=== PATIENT | male | born 1985 | race Caucasian/White ===

== ENCOUNTER 2019-01-08 15:48 | Outpatient (CLI) | payer OTHER, SELFPAY ==
--- NOTE | 2019-01-08 15:45 | DI.RAD_ITS ---
SYMPTOM/DIAGNOSIS: HIP DISLOCATION, RT FOR COMPARISON RIGHT HIP: Two views were obtained. The SI joints appear intact as visualized. There is minimal narrowing of the cartilaginous joint spaces of both hips superiorly. Minimal acetabular spurring noted. The findings appear essentially unchanged in comparison with examination of 02/27/18. LEFT HIP AND PELVIS: Two views were obtained. Mild hypertrophic spurring of acetabulae noted bilaterally and mild narrowing of cartilaginous joint spaces of both hips noted. No gross interval change from 02/27/18.
== END 2019-01-08 16:08 ==
PROVIDERS: PCP Family Medicine; Visit Provider Student in an Organized Health Care Education/Training Program
DX: M25.552 Pain in left hip (principal); S73.005S Unspecified dislocation of left hip, sequela; M16.0 Bilateral primary osteoarthritis of hip
CPT/HCPCS: 73502

== ENCOUNTER → 2023-05-24 13:49 | Outpatient (CLI) | payer BC, SELFPAY ==
--- OUTSIDE RECORDS SUMMARY | 2023-05-24 13:51 | XMS_ITS | Continuity of Care Document ---
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 Name Role Phone Anthony Brown Md, V Primary Care Physician Encounter [id number] FIN NBR [id number] Date(s): 12/29/22 - 12/29/[address] [id number] [place] Discharge Disposition: Home or Self Care Attending Physician: Anthony Brown Md, V Admitting Physician: Anthony Brown Md, V Referring Physician: Anthony Brown Md, V Results Radiology Reports * Exam Date Time Procedure Performing Provider Status 12/29/22 10:31 AM XR Hips 2 Views w/AP Pelvis Bilat Nora Kinsey Auth (Verified) Notes: (XR Hips 2 Views w/AP Pelvis Bilat) Reason For Exam: bilateral hip pain XR Hips 2 Views w/AP Pelvis Bilat EXAM DESCRIPTION: XR Hips 2 Views w/AP Pelvis Bilat 12/29/2022 INDICATION: BILATERAL HIP PAIN TECHNIQUE: Pelvis and bilateral hips, five views COMPARISON: 04/23/2020 IMPRESSION: No acute fracture or dislocation. SI joints appear symmetric and pubic symphysis appears intact. No significant hip arthritic changes. Hip joint spaces are well maintained No focal lytic or sclerotic lesion. JOB #: [id number] Final Signed by: Luis Miguel Betts MD Signed (Electronic Signature): 12/29/2022 10:40 am * Exam Date Time Procedure Performing Provider Status 12/29/22 10:17 AM XR Foot Complete 3+ Views Left Nora Kinsey Auth (Verified) Notes: (XR Foot Complete 3+ Views Left) Reason For Exam: PAIN IN LEFT FOOT XR Foot Complete 3+ Views Left EXAM DESCRIPTION: XR Foot Complete 3+ Views Left 12/29/2022 INDICATION: PAIN IN LEFT FOOT COMPARISON: None IMPRESSION: No acute fracture or dislocation No significant regional arthritic changes. Joint spaces are well maintained Small smoothly marginated lytic lesion involving the 5th metatarsal head which appears nonaggressive. No regional radiopaque soft tissue foreign body. JOB #: [id number] Final Signed by: Luis Miguel Betts MD Signed (Electronic Signature): 12/29/2022 10:30 am XR Foot - left GE 3 Views * Luis Miguel Betts MD: VERIFY, VERIFY Event Display: Report EXAM DESCRIPTION: XR Foot Complete 3+ Views Left 12/29/2022 INDICATION: PAIN IN LEFT FOOT COMPARISON: None IMPRESSION: No acute fracture or dislocation No significant regional arthritic changes. Joint spaces are well maintained Small smoothly marginated lytic lesion involving the 5th metatarsal head which appears nonaggressive. No regional radiopaque soft tissue foreign body. JOB #: [id number] Final Signed by: Luis Miguel Betts MD Signed (Electronic Signature): 12/29/2022 10:30 am XR Pelvis and Hip - bilateral Views * Luis Miguel Betts MD: VERIFY, VERIFY Event Display: Report EXAM DESCRIPTION: XR Hips 2 Views w/AP Pelvis Bilat 12/29/2022 INDICATION: BILATERAL HIP PAIN TECHNIQUE: Pelvis and bilateral hips, five views COMPARISON: 04/23/2020 IMPRESSION: No acute fracture or dislocation. SI joints appear symmetric and pubic symphysis appears intact. No significant hip arthritic changes. Hip joint spaces are well maintained No focal lytic or sclerotic lesion. JOB #: [id number] Final Signed by: Luis Miguel Betts MD Signed (Electronic Signature): 12/29/2022 10:40 am Patient Care team information Care Team Personnel Name: Kevin Duarte, Anthony Stephens Position: Physician Member Role: Primary Care Physician Address: Address: [facility] [address]- Care Team Related Persons Name: JAS SANCHEZ
--- NOTE | 2023-05-24 14:30 | DI.RAD_ITS ---
Exam(s) XR LUMBAR SPINE COMPLETE EXAM: XR LUMBAR SPINE COMPLETE CLINICAL HISTORY: evaluate vertebral pathology M54.9 DORSALGIA. TECHNIQUE: 2D digital imaging was performed. Five views. COMPARISON: No exams were available for comparison FINDINGS: BONES: No fracture or destructive lesion. Vertebral body heights are maintained. No facet hypertroph y identified. DISKS: Intervertebral disc spaces are maintained. ALIGNMENT: Lumbar spinal alignment is within normal limits. SOFT TISSUE: Normal. IMPRESSION: Unremarkable radiographs of the lumbar spine. DATA REPOSITORY: RADIATION DOSE DELIVERED:
--- NOTE | 2023-05-24 14:30 | DI.RAD_ITS ---
Exam(s) XR THORACIC SPINE COMPLETE EXAM: XR THORACIC SPINE COMPLETE CLINICAL HISTORY: evaluate vertebral pathology M54.9 DORSALGIA. TECHNIQUE: 2D digital imaging was performed. Three views. COMPARISON: No exams were available for comparison FINDINGS: BONES: There is no fracture or destructive lesion. The vertebral bodies and posterior elements are un remarkable. ALIGNMENT: Within normal limits. DISKS: Interverebral disc spaces are maintained. Minimal endplate osteophytes. SOFT TISSUE: Visualized lungs are clear. Heart size is normal. IMPRESSION: Mild degenerative changes. DATA REPOSITORY: RADIATION DOSE DELIVERED:
== END ==
PROVIDERS: PCP Family Medicine; Visit Provider Nurse Practitioner Family
DX: M54.9 Dorsalgia, unspecified (principal)
CPT/HCPCS: 72072; 72110

== ENCOUNTER 2025-07-17 07:52 | Emergency (ER) | payer OTHER, SELFPAY ==
[2025-07-17 07:53] VITALS: BP 143/99; PULSE 75; RESP 15; TEMP 36.4; O2SAT 98
--- NOTE | 2025-07-17 08:05 | ED.GENADUL_ITS ---
Discharge Plan Disposition Patient Disposition: Home Condition: Good Discharge Details Clinical Impression: Laceration of right index finger Primary Care Provider: Anthony Brown ED Provider: Jose Armando Merida Home Meds and New Rx's Prescriptions: No Action omeprazole 40 mg capsule,delayed release(DR/EC) 40 mg PO BID Patient Comments: TAKE 1 CAPSULE BY MOUTH TWICE DAILY 30 MINUTES BEFORE BREAKFAST AND EVENING MEAL Discharge Instructions Instructions: Laceration Repair With Glue ED Additional Instructions: At this time your laceration has been reapproximated with Dermabond. Please leave this on for the next 7 to 10 days. It will fall off on its own after 1 to 2 weeks. Please keep the area clean and dry. Monitor closely for any redness, drainage or discharge. For long-term scar cosmesis, please make sure to avoid any sun to the area for the next year. Apply moisturizer or vitamin E to the area twice daily for the next 12 months for the best chance of wound/scar medication. Please take a daily multivitamin as well as this can help in wound healing. If you notice any worsening of your symptoms, or any new symptoms such as vomi ting, diarrhea, fever, chills, shortness of breath, chest pain, numbness, weakness, or fainting , please return immediately to the emergency department for reevaluation. Please follow up with your primary care provider as soon as possible for reassessment and reevaluation. As always, it was a pleasure participating in your medical care today. Stand Alone Forms: Work Release Referrals: Anthony Brown [Primary Care Provider, Medicine] [facility] General Date/Time Provider Initiated Documentation: 07/17/25 08:05 . HPI Narrative: 39-year-old male who is left-hand dominant who his last tetanus shot was 10 years ago presents today for evaluation of laceration to the right index finger that occurred at work. He was using a steam box tender when it slipped and sliced the shaft of the right index finger. Patient denies any other complaints aside for burning at the laceration. He denies any other modifying factors. He is not on any blood thinners. Related Data Home Medications ?Medication ?Instructions ?Recorded ?Confirmed omeprazole 40 mg capsule,delayed 40 mg PO BID 07/17/25 07/17/25 release Allergies Allergy/AdvReac Type Severity Reaction Status Date / Time No Known Allergies Allergy Unverified 07/17/25 08:02 General Stated Complaint: Laceration CAROLE: 4 Exam Narrative Exam Narrative: 1.Const: Well-nourished, Well-developed, appearing stated age 2.Eyes: PERRL, no conjunctival injection, and symmetrical lids. 3.ENT: Atraumatic external nose and ears. Moist MM. Neck: Symmetric, trachea midline, No thyromegaly. 4.CVS: +S1/S2, Peripheral pulses 2+ and equal in all extremities. Brisk capillary refill in all extremities. 5.RESP: Unlabored respiratory effort. Clear to auscultation bilaterally. No wheezes rales or rhonchi 6.GI: Soft, Nontender/Nondistended, No hepatosplenomegaly. No guarding or rebound. 7.MSK: Normocephalic/Atraumatic, Extremities w/o deformity or ttp No cyanosis or clubbing, Normal movement of all extremities 8.Skin: Warm, Dry. Small two centimeter curvilinear crescent superficial laceration to the lateral aspect of the right index finger at the mid phalanx. Normal sensation throughout the finger. Brisk capillary refill. Normal flexion and extension strength. No deficits. 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 Sensation grossly intact, no focal neurologic deficits. 10.Psych: (AAO) x3. Appropriate mood and affect Course Vital Signs Vital signs: Vital Signs Temperature 36.4 C L 07/17/25 07:53 Pulse 75 07/17/25 07:53 Respiratory Rate 15 07/17/25 07:53 Blood Pressure 143/99 H 07/17/25 07:53 Pulse Oximetry 98 07/17/25 07:53 Temperature 36.4 C L 07/17/25 07:53 Temperature Source Temporal Artery Scan 07/17/25 07:53 Pulse 75 07/17/25 07:53 Respiratory Rate 15 07/17/25 07:53 Blood Pressure 143/99 H 07/17/25 07:53 Blood Pressure Position Sitting 07/17/25 07:53 Pulse Oximetry 98 07/17/25 07:53 Oxygen Delivery Method Room Air 07/17/25 07:53 Oxygen Flow Rate 0 07/17/25 07:53 Pain Level 7 07/17/25 08:00 Procedure Laceration Laceration 1: Date of Procedure: 07/17/25 Time of procedure: 08:27 Provider that performed the procedure: Jose Armando Merida Standard Time Out Performed: No Patient Consented: Verbally Site: upper extremity Side (If applicable): right Description: flap (2cm) Depth: simple, single layer Pre-repair:: wound explored, irrigated extensively and deep structures intact Skin layer closed with: other (dermabond) Medical Decision Making 39-year-old male who is left-hand dominant who his last tetanus shot was 10 years ago presents today for evaluation of laceration to the right index finger that occurred at work. He was using a steam box tender when it slipped and sliced the shaft of the right index finger. Patient denies any other complaints aside for burning at the laceration. He denies any other modifying factors. He is not on any blood thinners. Physical exam demonstrates a small two centimeter curvilinear crescent superficial laceration to the lateral aspect of the right index finger at the mid phalanx. Normal sensation throughout the finger. Brisk capillary refill. Normal flexion and extension strength. No deficits. Laceration is superficial in nature. No bleeding or deep component. Laceration is amendable to Dermabond. Wound was washed and cleaned. Dermabond was applied, patient tolerated this well. Multiple layers were applied. Patient will be given a splint to help enhance wound healing and limit likelihood of dehiscence. Discussed red flags which to return. Tetanus was updated today. I have extensively reviewed the treatment plan and discharge instructions with the patient. I have addressed all patient concerns at this time. The patient was made aware of what symptoms to monitor for that would warrant a return to the emergency department. Discussed the plan with the patient, they demonstrate verbal understanding and agreement with our assessment and plan at this time. The documentation in this chart was dictated using [employer] dictation software. Please excuse any dictation errors. PFSH All Active Problems (Updated 07/17/25 @ 08:15 by Jose Armando Merida, ) Laceration of right index finger (Acute) Closed displaced fracture of fifth metatarsal bone of left foot with routine healing (Acute 07/05/16) Closed fracture of head of metatarsal bone of left foot (Acute 06/09/15) Closed posterior wall fracture of left acetabulum (Acute 06/09/15) Laceration of left elbow with foreign body (Acute 08/31/15) Psoas tendonitis of left side (Acute 11/20/15) Disp fx of fifth metatarsal bone of left foot with routine healing (Acute) Closed posterior wall fracture of left acetabulum (Acute) Dislocation of hip, left, closed (Acute) Medical History (Updated 07/17/25 @ 08:15 by Jose Armando Merida DO) Hip dislocation, left (05/29/15) Closed reduction by Erik Patrick MD Social History Smoking/Tobacco Use Status: Never Smoking risk assessment performed?: Yes Alcohol Intake: current Alcohol Intake frequency: holidays/special occasions only Drug use: Never Substance use type: does not use Housing: house
[2025-07-17] MEDS: Diph,Pertuss(Acell),Tet Vac/Pf 0.5 ML SYR IM (08:10)
== END 2025-07-17 08:37 | disposition home or self-care (01) ==
LOC: ER 08:44
PROVIDERS: Emergency Provider Student in an Organized Health Care Education/Training Program; PCP Family Medicine
DX: S61.210A Laceration without foreign body of right index finger without damage to nail, initial encounter (principal); Z23 Encounter for immunization; W26.8XXA Contact with other sharp object(s), not elsewhere classified, initial encounter; Y99.0 Civilian activity done for income or pay
CPT/HCPCS: 99283; 99284; 12001; 90471; 90715